=== PATIENT | female | born 1955 | race American Indian/Alaskan Native ===

== ENCOUNTER 2017-06-28 19:49 | Emergency (ER) | payer MEDICARE ==
[2017-06-28] MEDS ORDERED: TYLENOL ONE (20:09)
[2017-06-28] MEDS ORDERED: TYLENOL PO ONE (20:11)
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
[2017-06-28 22:29] LABS: Bilirubin,Urine NEG (Negative); Blood,Urine NEG (Negative); Ketones,Urine NEG (Negative); Leukocyte Esterase,Urine NEG (Negative); Mucus,Urine FEW /HPF; Nitrite,Urine NEG (Negative); Protein,Urine <15 mg/dL mg/dL (Negative); WBC,Urine < 1.0 /HPF (0.0-6.0)
--- NOTE | 2017-06-29 00:16 | Cat Scan Report ---
FINAL REPORT PROCEDURE: CT LUMBAR SPINE WO CON TECHNIQUE: Computerized axial tomography of the lumbar spine was performed from T12 to the sacrum without contrast material. HISTORY: worsening lower back pain l-spine region COMPARISON: No prior studies are available for comparison. FINDINGS: L1-2: No significant abnormality. L2-3: No significant abnormality. L3-4: No significant abnormality. L4-5: There is loss of disc height at L4-5 with severe facet arthropathy and grade 1 anterior spondylolisthesis. This causes severe bilateral lateral recess stenosis. There is severe bilateral foraminal stenosis. L5-S1: There is bilateral facet hypertrophy and osteophytic ridging. There is severe bilateral foraminal stenosis worse on the left.. Other: The sacrum and sacroiliac joints are intact. The paraspinal soft tissues are unremarkable. There is 2 millimeter stone in the right kidney. There is no hydronephrosis.. IMPRESSION: There are no fractures. There is loss of disc height at L4-5 with severe facet arthropathy and grade 1 anterior spondylolisthesis. This causes severe bilateral lateral recess stenosis. There is severe bilateral foraminal stenosis. There is bilateral facet hypertrophy and osteophytic ridging at L5-S1. There is severe bilateral foraminal stenosis worse on the left.. There is 2 millimeter stone in the right kidney. There is no hydronephrosis..
[2017-06-29 00:44] VITALS: BP 142/75
== END 2017-06-29 00:30 ==
LOC: ED 19:49
DX: M54.5 Low back pain (principal); E11.9 Type 2 diabetes mellitus without complications; E78.00 Pure hypercholesterolemia, unspecified; E66.9 Obesity, unspecified; V49.9XXA Car occupant (driver) (passenger) injured in unspecified traffic accident, initial encounter; Y93.89 Activity, other specified; Y92.89 Other specified places as the place of occurrence of the external cause; Y99.8 Other external cause status
CPT/HCPCS: 72131; 81001